=== PATIENT | male | born 1975 | race Caucasian/White ===

== ENCOUNTER → 2021-10-16 | Outpatient (CLI) | payer OTHER ==
--- NOTE | 2021-10-16 13:07 | RAD ---
EXAM: Pelvis and right hip, 2 views. HISTORY: Follow up after impingement surgery. COMPARISON: None. FINDINGS: A frontal view of the pelvis and frog-leg view the right hip are obtained. There is no frac ture, dislocation or subluxation. The femoral heads are normal in configuration. There are small kihsa gn bone islands. There are few pelvic phleboliths. IMPRESSION: No acute osseous finding. Electronically signed by: Farida Ibrahim MD (10/16/2021 1:05 PM) [id number]
== END ==
LOC: RAD 12:38
PROVIDERS: ATTEND Physician Assistant
DX: M25.551 Pain in right hip (principal); I87.8 Other specified disorders of veins
CPT/HCPCS: 73501

== ENCOUNTER → 2021-12-14 | Outpatient (CLI) | payer OTHER ==
--- NOTE | 2021-12-14 14:04 | RAD ---
EXAM: XR KNEE_AP BILAT STANDING, XR KNEE 1-2 VIEWS 12/14/2021 10:10 AM CLINICAL INDICATION: Chronic knee pain COMPARISON: None TECHNIQUE: Standing AP view of the bilateral knees. Lateral views of the right and left knees and gutiérrez nrise views of the bilateral knees. FINDINGS: Right knee: No acute fracture or malalignment. There are surgical changes of ACL reconstruction. Ther e is mild medial compartment narrowing. Small medial and patellofemoral compartment osteophytes. Smal l joint effusion. Left knee: No acute fracture or malalignment. No joint space narrowing. There are tiny patellofemoral osteophytes. No joint effusion. IMPRESSION: 1. Right knee: Surgical changes of ACL reconstruction. Mild medial and patellofemoral compartment deg enerative joint disease. 2. Left knee: Minimal degenerative changes in the patellofemoral compartment. Electronically signed by: Bella Bello MD (12/14/2021 2:02 PM) [id number]
== END ==
LOC: RAD 09:49
PROVIDERS: ATTEND Physician Assistant
DX: M17.0 Bilateral primary osteoarthritis of knee (principal); M25.461 Effusion, right knee; M25.761 Osteophyte, right knee; M25.762 Osteophyte, left knee; M25.861 Other specified joint disorders, right knee; Z98.890 Other specified postprocedural states
CPT/HCPCS: 73565; 73560-50